=== PATIENT | male | born 1990 | race Hispanic/Latino ===

== ENCOUNTER 2019-03-03 18:08 | Emergency (ER) | payer SELFPAY ==
[~2019-03-03 18:08] MED LIST: EPINEPHrine 1 MG/10 ML Abboject SYRINGE ONE
[2019-03-03] MEDS ORDERED: Tranexamic Acid 1,000 MG/10 ML VIAL ONE (18:12)
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
== END 2019-03-03 18:21 | disposition expired ==
LOC: ERS 18:08 → EDBD 18:08 → ERS 18:21
DX: S06.9X1A Unspecified intracranial injury with loss of consciousness of 30 minutes or less, initial encounter (principal); I46.9 Cardiac arrest, cause unspecified; V57.5XXA Driver of pick-up truck or van injured in collision with fixed or stationary object in traffic accident, initial encounter
CPT/HCPCS: 32551; 36430; 36556; 36680; 86850; 86900; 86901; 92950; 96374; 96375; G0390; J0171; P9016; P9048